=== PATIENT | male | born 1985 | race Two or more races ===

== ENCOUNTER 2018-08-20 20:07 | Emergency (ER) | payer MEDICAID ==
[~2018-08-20] VITALS: Ht 165.1 cm; Wt 70.8 kg
--- NOTE | 2018-08-20 20:15 | NUR ---
PT BIBFAMILY C/O BILAT TESTICLE PAIN X 10 DAYS, PATIENT STATES TODAY IS THE WORST. DENIES ANY TRAUMA. PT AOX4. NAD NOTED. RESP EVEN AND UNLABORED. PT ON MONITOR IN BED 10. WILL CONTINUE TO MONITOR.
[2018-08-20] MEDS ORDERED: KETOROLAC TROMETHAMINE INJ 30 MG/ML VIAL ONE (20:51)
[2018-08-20] MEDS ORDERED: KETOROLAC TROMETHAMINE INJ 60 MG/2 ML VIAL IM ONE (21:00)
[2018-08-20 21:21] LABS: APPEARANCE,URINE Clear (CLEAR); BILIRUBIN,URINE Negative (NEGATIVE); BLOOD, URINE Negative Ery/uL (NEGATIVE); COLOR,URINE Yellow (YELLOW); KETONES,URINE Negative (NEGATIVE); LEUKOCYTE ESTERASE ,URINE Negative (NEGATIVE); NITRITE, URINE Negative (NEGATIVE); PH,URINE 6.5 (5.0-8.0); PROTEIN,URINE Trace mg/dl (NEGATIVE); UGLUCOSE Negative (NEGATIVE); UROBILINOGEN,URINE 0.2 EU/dL (0.2)
[2018-08-20 22:12] VITALS: BP 125/77
--- NOTE | 2018-08-20 22:12 | NUR ---
PT OK TO BE DISCHARGED PER DR GUADARRAMA. Patient discharged to home in stable condition. Written and verbal after care instructions given. Patient verbalizes understanding of instruction.Patient is awake and alert to self, day, and place. Pt ambulatory with a steady gait.
== END 2018-08-20 22:13 | disposition home or self-care (01) ==
LOC: ER 20:09
DX: N50.812 Left testicular pain (principal); N50.811 Right testicular pain
CPT/HCPCS: 76870; 81001; 96372; 99284; J1885; 81000-TC

== ENCOUNTER 2024-04-11 14:18 | Emergency (ER) | payer MEDICAID ==
[~2024-04-11] VITALS: Ht 165.1 cm; Wt 71.7 kg
[2024-04-11 15:32] VITALS: BP 112/77; TEMP 98.3
[2024-04-11] MEDS ORDERED: IBUP-1955 PO (16:02)
[2024-04-11 16:07] VITALS: O2SAT 100
== END 2024-04-11 16:08 | disposition home or self-care (01) ==
LOC: ER 14:27
DX: J02.9 Acute pharyngitis, unspecified (principal); R51.9 Headache, unspecified; M79.10 Myalgia, unspecified site